=== PATIENT | male | born 2005 | race Caucasian/White ===

== ENCOUNTER 2024-08-27 21:14 | Emergency (ER) | payer OTHER ==
[~2024-08-27] VITALS: Ht 167.6 cm; Wt 81.8 kg
[2024-08-27 21:20] VITALS: TEMP 97.5
[2024-08-27] MEDS ORDERED: ASHW62.5 PO (21:26)
[2024-08-28 00:37] VITALS: BP 116/81; PULSE 50; RESP 20; O2SAT 99
[2024-08-28] MEDS: IBUPROFEN 400 MG TABLET PO ONE (01:23)
[2024-08-28] MEDS: ACETAMINOPHEN 500 MG TABLET PO ONE (01:24)
== END 2024-08-28 01:24 | disposition home or self-care (01) ==
LOC: EMS 21:14
DX: S40.012A Contusion of left shoulder, initial encounter (principal); S09.90XA Unspecified injury of head, initial encounter; M25.512 Pain in left shoulder; F12.90 Cannabis use, unspecified, uncomplicated; J45.909 Unspecified asthma, uncomplicated; W21.01XA Struck by football, initial encounter; Y93.62 Activity, american flag or touch football; Y92.89 Other specified places as the place of occurrence of the external cause; Y99.8 Other external cause status
CPT/HCPCS: 99283